=== PATIENT | female | born 2005 ===

== ENCOUNTER 2023-01-30 09:08 | Outpatient (CLI) | payer BC, SELFPAY | END 2023-01-30 09:09 | disposition home or self-care (01) | PROVIDERS: PCP Family Medicine; Visit Provider Family Medicine | DX: Z00.00 Encounter for general adult medical examination without abnormal findings (principal); D64.9 Anemia, unspecified; Z13.6 Encounter for screening for cardiovascular disorders | CPT/HCPCS: 80053; 80061; 82728; 83540; 83550 ==

== ENCOUNTER 2024-01-21 14:57 | Outpatient (CLI) | payer BC, SELFPAY ==
--- NOTE | 2024-01-21 15:00 | CRLHL7_ITS ---
For Patients: As a result of the Century Cures Act, medical imaging exams and procedure reports are released immediately into your electronic medical record. You may view this report before your referring provider. If you have questions, please contact your health care provider. INDICATION: Dysmenorrhea COMPARISON: None available. FINDINGS: Transabdominal ultrasound examination of the female pelvis was performed. The uterus is anteverted with no evidence of mass. It measures 7.1 x 3.7 x 5.0 cm. The endometrial lining is mildly increased in thickness at 13 mm, probably related to the patient`s menstrual cycle. The ovaries are normal in appearance. The left ovary is distinctly larger than the left, the right measuring 3.8 x 1.5 x 2.2 cm and the left measuring 7.0 x 2.7 x 3.2 cm. There is normal color doppler flow in both ovaries. There is no sign of free fluid in the pelvis. IMPRESSION: 1. Mildly enlarged left ovary without mass or cyst. 2. Otherwise normal ultrasound examination of the female pelvis using transabdominal technique. Dictated by Truman Jefferson MD @ 01/21/2024 11:06:22 PM (Electronically Signed)
== END 2024-01-21 14:58 | disposition home or self-care (01) ==
LOC: US 14:58
PROVIDERS: PCP Family Medicine; Visit Provider Family Medicine
DX: N94.6 Dysmenorrhea, unspecified (principal); N83.8 Other noninflammatory disorders of ovary, fallopian tube and broad ligament
CPT/HCPCS: 76830; 76856

== ENCOUNTER 2025-01-05 10:09 | Outpatient (CLI) | payer BC, SELFPAY | END 2025-01-05 10:10 | disposition home or self-care (01) | LOC: NFLDREF 01-08 13:03 | PROVIDERS: PCP Family Medicine; Referring Provider Family Medicine; Visit Provider Family Medicine | DX: R52 Pain, unspecified (principal); B37.31 Acute candidiasis of vulva and vagina; N76.0 Acute vaginitis | CPT/HCPCS: 87086 ==